=== PATIENT | female | born 1955 | race Caucasian/White ===

== ENCOUNTER → 2019-04-05 | Outpatient (CLI) | payer OTHER ==
--- NOTE | 2019-04-05 16:44 | Diagnostic Imaging Report ---
EXAMINATION: Right knee at 3:26 p.m. INDICATION: Knee pain. FINDINGS: Three views were obtained. There are no prior studies available for comparison. There is no fracture, dislocation or acute bony abnormality evident. 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 Opposing osteophytes are also seen in this area. The lateral compartment is fairly well-maintained. There is mild narrowing of the patellofemoral space. The lateral view does suggest a joint effusion. The soft tissues are otherwise unremarkable. IMPRESSION: 1. There is no evidence for an acute bony abnormality. 2. There does appear to be severe narrowing of the medial compartment of the knee joint and there is a joint effusion present. 3. If there is clinical concern regarding internal derangement and further imaging is desired, then MRI would be recommended. Dictated by: Dictated on workstation # [id number]
== END ==
LOC: RAD FS 15:19
PROVIDERS: ATTEND Nurse Practitioner
DX: M25.461 Effusion, right knee (principal)
CPT/HCPCS: 73562